=== PATIENT | male | born 1940 | race Caucasian/White ===

== ENCOUNTER 2019-02-28 08:21 | Inpatient (IN) | payer OTHER ==
--- OUTSIDE RECORDS SUMMARY | 2019-02-28 08:38 | XMS REPORT | Clinical Summary ---
:1940 Author Organization [facility] Address [address] [place] [address] Care Team Providers Name Role Phone Asked, No Pcp Primary Care Provider Unavailable Allergies Active Allergy Reactions Severity Noted Date Comments Meperidine Itching 01/27/2018 Medications Medication Sig Dispensed Refills Start End Date Status Date metFORMIN Take 1,000 mg 0 Active (GLUCOPHAGE) 1,000 by mouth 2 mg tablet (two) times a day with meals. atorvastatin Take 80 mg by 0 Active (LIPITOR) 80 MG mouth nightly. tablet gemfibrozil Take 600 mg by 0 Active (LOPID) 600 MG mouth 2 (two) tablet times a day. ezetimibe (ZETIA) Take 10 mg by 0 Active 10 mg tablet mouth daily. omeprazole Take 20 mg by 0 Active (PriLOSEC) 20 MG mouth daily. capsule lisinopril Take 5 mg by 0 Active (PRINIVIL,ZESTRIL) mouth daily. 5 mg tablet apixaban (ELIQUIS) Take 2.5 mg by 0 Active 5 mg tablet mouth 2 (two) times a day. furosemide (LASIX) Take 20 mg by 0 Active 20 mg tablet mouth daily. metoprolol Take 50 mg by 0 Active tartrate mouth 2 (two) (LOPRESSOR) 50 mg times a day. tablet amIODarone Take 400 mg by 0 Active (PACERONE) 200 MG mouth daily. tablet ondansetron Take 4 mg by 0 Active (ZOFRAN) 4 MG mouth every 6 tablet (six) hours as needed for nausea or vomiting. potassium 99 mg Take 1 tablet 0 Active tablet by mouth daily. folic Take 1 tablet 0 Active acid/multivit-min/ by mouth daily. lutein (CENTRUM SILVER ORAL) lidocaine-prilocai Apply 1 0 Active ne (EMLA) 2.5-2.5 application % cream topically. Apply to chemo port as directed UNABLE TO FIND Take 5 mL by 0 Active mouth every 6 (six) hours as needed. VISCOUS Swish, gargle and spit digOXIN (LANOXIN) Take 125 mcg by 0 07/01/19 Discontinued 125 mcg tablet mouth daily. 19 (Med List Cleanup) metoprolol Take 1 tablet 60 tablet 0 03/04/20 tartrate (25 mg total) 8 18 (LOPRESSOR) 25 mg by mouth 2 tablet (two) times a day for 30 days. apixaban (ELIQUIS) Take 1 tablet 60 tablet 0 03/04/20 5 mg tablet (5 mg total) by 8 18 mouth 2 (two) times a day for 30 days. pantoprazole Take 20 mg by 0 07/01/19 Discontinued (PROTONIX) 20 MG mouth daily. 19 (Med List EC tablet Cleanup) LORAZepam (ATIVAN) Take 0.5 mg by 0 07/01/19 Discontinued 0.5 MG tablet mouth nightly 19 (Med List as needed for Cleanup) anxiety (NAUSEA). eletriptan Take 20 mg by 0 07/01/19 Discontinued (RELPAX) 20 MG mouth once as 19 (Med List tablet needed for Cleanup) migraine. May repeat in 2 hours if unresolved. Do not exceed 80 mg in 24 hours. fluconazole Take 1 tablet 5 tablet 0 07/12/19 (DIFLUCAN) 200 MG (200 mg total) 9 19 tablet by mouth daily for 5 days. nystatin Take 5 mL by 70 mL 0 07/13/19 (MYCOSTATIN) mouth 2 (two) 9 19 100,000 unit/mL times a day for suspension 7 days. metroNIDAZOLE Take 1 tablet 39 tablet 0 07/19/19 (FLAGYL) 500 MG (500 mg total) 9 19 tablet by mouth 3 (three) times a day for 13 days. gabapentin Take 1 capsule 20 capsule 0 07/16/19 (NEURONTIN) 100 mg (100 mg total) 9 19 capsule by mouth 2 (two) times a day for 10 days. Active Problems Problem Noted Date Neutropenic fever 07/01/2018 Metastatic non-small cell lung cancer 05/23/2018 Atrial fibrillation with RVR 01/30/2018 Status post chemotherapy 01/27/2018 Encounters Date Type Specialty Care Team Description 07/01/2018 - Hospital Encounter General Internal [place] Neutropenic fever (HCC) (Primary Dx); 07/06/2018 Medicine MD Favio Pneumonia of right lung due to infectious organism, unspecified part of lung; Marvin Lazo Sepsis, due to unspecified organism (HCC); MD Liane Status post chemotherapy 06/23/2018 Infusion Oncology Marcia, Metastatic non-small cell lung cancer (HCC) (Primary Dx); MD Mary Status post chemotherapy 06/23/2018 Transcribe Orders Oncology Eli Bernabe 06/17/2018 Transcribe Orders Oncology Eli Bernabe 06/17/2018 Orders Only Hematology and [place], Malignant neoplasm of lower lobe of lung, unspecified laterality (HCC) (Primary Dx); Oncology MD Mary Metastatic non-small cell lung cancer (HCC) 05/31/2018 Infusion Oncology Marcia, Metastatic non-small MD Mary cell lung cancer (HCC) (Primary Dx) 05/31/2018 Transcribe Orders Oncology Eli Bernabe 05/26/2018 Transcribe Orders Oncology Srinivasa, Metastatic non-small Eli cell lung cancer (HCC) 05/20/2018 Transcribe Orders Oncology Eli Bernabe after 02/27/2018 Social History Tobacco Use Types Packs/Day Years Used Date Current Every Day Smoker Cigarettes 1.5 50 Tobacco Cessation: Ready to Quit: No; Counseling Given: No Comments: Declined Alcohol Use Drinks/Week oz/Week Comments No Sex Assigned at Date Recorded Not on file Job Start Date Occupation Industry Not on file Not on file Not on file Travel History Travel Start Travel End No recent travel history available. Last Filed Vital Signs Vital Sign Reading Time Taken Comments Blood Pressure 102/58 07/06/2018 7:35 AM CONVERTING OPERATOR Pulse 85 07/06/2018 7:35 AM CONVERTING OPERATOR Temperature 36.2 C (97.1 F) 07/06/2018 7:35 AM CONVERTING OPERATOR Respiratory Rate 17 07/06/2018 7:35 AM CONVERTING OPERATOR Oxygen Saturation 95% 07/06/2018 7:35 AM CONVERTING OPERATOR Inhaled Oxygen Concentration - - Weight 78.1 kg (172 lb 4 oz) 07/06/2018 6:45 AM CONVERTING OPERATOR Height 188 cm (6' 2") 07/01/2018 11:53 AM CONVERTING OPERATOR Body Mass Index 22.12 07/01/2018 11:53 AM CONVERTING OPERATOR Plan of Treatment Health Maintenance Due Date Last Done Comments COLONOSCOPY SCREENING 1992 SHINGLES VACCINES (#1) 1992 65+ PNEUMOCOCCAL VACCINE (1 of 2 - PCV13) 11/21/2007 INFLUENZA VACCINE 01/19/2019 Procedures Procedure Name Priority Date/Time Associated Diagnosis Comments MANUAL DIFFERENTIAL Routine 07/06/2018 5:53 Results for this AM CONVERTING OPERATOR procedure are in the results section. ESTIMATED GFR Routine 07/06/2018 5:53 Results for this AM CONVERTING OPERATOR procedure are in the results section. COMPREHENSIVE Routine 07/06/2018 5:53 Results for this METABOLIC PANEL AM CONVERTING OPERATOR procedure are in the results section. CBC WITH PLATELET AND Routine 07/06/2018 5:53 Results for this DIFFERENTIAL AM CONVERTING OPERATOR procedure are in the results section. BLOOD CULTURE, AEROBIC Routine 07/05/2018 3:30 Results for this & ANAEROBIC PM CONVERTING OPERATOR procedure are in the results section. BLOOD CULTURE, AEROBIC Routine 07/05/2018 3:30 Results for this & ANAEROBIC PM CONVERTING OPERATOR procedure are in the results section. PREPARE PLATELET Routine 07/05/2018 3:15 Results for this PHERESIS PM CONVERTING OPERATOR procedure are in the results section. TRANSFUSE PLATELET Routine 07/05/2018 2:39 PHERESIS PM CONVERTING OPERATOR MANUAL DIFFERENTIAL STAT 07/05/2018 9:40 Results for this AM CONVERTING OPERATOR procedure are in the results section. ESTIMATED GFR STAT 07/05/2018 9:40 Results for this AM CONVERTING OPERATOR procedure are in the results section. COMPREHENSIVE STAT 07/05/2018 9:40 Results for this METABOLIC PANEL AM CONVERTING OPERATOR procedure are in the results section. CBC WITH PLATELET AND STAT 07/05/2018 9:40 Results for this DIFFERENTIAL AM CONVERTING OPERATOR procedure are in the results section. MANUAL DIFFERENTIAL Routine 07/04/2018 5:45 Results for this AM CONVERTING OPERATOR procedure are in the results section. ESTIMATED GFR Routine 07/04/2018 5:45 Results for this AM CONVERTING OPERATOR procedure are in the results section. BASIC METABOLIC PANEL Routine 07/04/2018 5:45 Results for this AM CONVERTING OPERATOR procedure are in the results section. CBC WITH PLATELET AND Routine 07/04/2018 5:45 Results for this DIFFERENTIAL AM CONVERTING OPERATOR procedure are in the results section. XR CHEST 1 VW PORTABLE Routine 07/03/2018 2:18 Results for this PM CONVERTING OPERATOR procedure are in the results section. MANUAL DIFFERENTIAL Routine 07/03/2018 6:19 Results for this AM CONVERTING OPERATOR procedure are in the results section. ESTIMATED GFR Routine 07/03/2018 6:19 Results for this AM CONVERTING OPERATOR procedure are in the results section. BASIC METABOLIC PANEL Routine 07/03/2018 6:19 Results for this AM CONVERTING OPERATOR procedure are in the results section. CBC WITH PLATELET AND Routine 07/03/2018 6:19 Results for this DIFFERENTIAL AM CONVERTING OPERATOR procedure are in the results section. URINALYSIS SCREEN AND Routine 07/02/2018 6:55 Results for this MICROSCOPY, WITH AM CONVERTING OPERATOR procedure are in REFLEX TO CULTURE the results section. GRAM STAIN Routine 07/02/2018 6:55 Results for this AM CONVERTING OPERATOR procedure are in the results section. URINE CULTURE Routine 07/02/2018 6:55 Results for this AM CONVERTING OPERATOR procedure are in the results section. MANUAL DIFFERENTIAL Routine 07/02/2018 6:05 Results for this AM CONVERTING OPERATOR procedure are in the results section. ESTIMATED GFR Routine 07/02/2018 6:05 Results for this AM CONVERTING OPERATOR procedure are in the results section. BASIC METABOLIC PANEL Routine 07/02/2018 6:05 Results for this AM CONVERTING OPERATOR procedure are in the results section. CBC WITH PLATELET AND Routine 07/02/2018 6:05 Results for this DIFFERENTIAL AM CONVERTING OPERATOR procedure are in the results section. CONSULT TO SEPSIS Routine 07/02/2018 5:31 Neutropenic fever Results for this RESPONSE TEAM AM CONVERTING OPERATOR (HCC) procedure are in Status post the results chemotherapy section. TRANSFUSE RED BLOOD Routine 07/02/2018 3:13 CELLS AM CONVERTING OPERATOR TRANSFUSE PLATELET Routine 07/01/2018 11:19 PHERESIS PM CONVERTING OPERATOR LACTIC ACID LEVEL, Timed 07/01/2018 7:45 Results for this SEPSIS - NOW AND PM CONVERTING OPERATOR procedure are in REPEAT 2X EVERY 3 the results HOURS section. LACTIC ACID LEVEL, Timed 07/01/2018 5:53 Results for this SEPSIS - NOW AND PM CONVERTING OPERATOR procedure are in REPEAT 2X EVERY 3 the results HOURS section. POC GLUCOSE Routine 07/01/2018 4:01 Results for this PM CONVERTING OPERATOR procedure are in the results section. PREPARE PLATELET Routine 07/01/2018 3:45 Results for this PHERESIS PM CONVERTING OPERATOR procedure are in the results section. PREPARE RBC Routine 07/01/2018 3:45 Results for this PM CONVERTING OPERATOR procedure are in the results section. TYPE AND SCREEN Routine 07/01/2018 3:45 Results for this PM CONVERTING OPERATOR procedure are in the results section. ECG 12-LEAD STAT 07/01/2018 2:11 Results for this PM CONVERTING OPERATOR procedure are in the results section. RESPIRATORY PATHOGEN Routine 07/01/2018 2:05 Results for this PANEL PM CONVERTING OPERATOR procedure are in the results section. INFLUENZA ANTIGEN Routine 07/01/2018 2:05 Results for this TEST, REFLEX NEGATIVE PM CONVERTING OPERATOR procedure are in TO RPP the results section. BLOOD CULTURE, AEROBIC Routine 07/01/2018 1:30 Results for this & ANAEROBIC PM CONVERTING OPERATOR procedure are in the results section. SMEAR REVIEW STAT 07/01/2018 1:19 Results for this PM CONVERTING OPERATOR procedure are in the results section. SMEAR REVIEW STAT 07/01/2018 1:19 Results for this PM CONVERTING OPERATOR procedure are in the results section. ESTIMATED GFR STAT 07/01/2018 1:19 Results for this PM CONVERTING OPERATOR procedure are in the results section. B NATRIURETIC PEPTIDE STAT 07/01/2018 1:19 Results for this PM CONVERTING OPERATOR procedure are in the results section. PROTHROMBIN TIME WITH STAT 07/01/2018 1:19 Results for this INR PM CONVERTING OPERATOR procedure are in the results section. PHOSPHORUS LEVEL STAT 07/01/2018 1:19 Results for this PM CONVERTING OPERATOR procedure are in the results section. PARTIAL THROMBOPLASTIN STAT 07/01/2018 1:19 Results for this TIME (PTT) PM CONVERTING OPERATOR procedure are in the results section. MAGNESIUM LEVEL STAT 07/01/2018 1:19 Results for this PM CONVERTING OPERATOR procedure are in the results section. HEPATIC FUNCTION PANEL STAT 07/01/2018 1:19 Results for this PM CONVERTING OPERATOR procedure are in the results section. HC COMPLETE BLD COUNT STAT 07/01/2018 1:19 Results for this W/AUTO DIFF PM CONVERTING OPERATOR procedure are in the results section. BASIC METABOLIC PANEL STAT 07/01/2018 1:19 Results for this PM CONVERTING OPERATOR procedure are in the results section. LACTIC ACID LEVEL, STAT 07/01/2018 1:19 Results for this SEPSIS - NOW AND PM CONVERTING OPERATOR procedure are in REPEAT 2X EVERY 3 the results HOURS section. BLOOD CULTURE, AEROBIC Routine 07/01/2018 1:19 Results for this & ANAEROBIC PM CONVERTING OPERATOR procedure are in the results section. XR CHEST 1 VW PORTABLE STAT 07/01/2018 1:05 Results for this PM CONVERTING OPERATOR procedure are in the results section. ECG ED PRELIMINARY Routine 07/01/2018 12:15 Results for this INTERPRETATION PM CONVERTING OPERATOR procedure are in the results section. UT CRITICAL CARE, E/M Routine 07/01/2018 12:15 Results for this 30-74 MINUTES PM CONVERTING OPERATOR procedure are in the results section. COMPREHENSIVE STAT 06/23/2018 9:10 Results for this METABOLIC PANEL AM CONVERTING OPERATOR procedure are in the results section. ESTIMATED GFR STAT 06/23/2018 9:10 Results for this AM CONVERTING OPERATOR procedure are in the results section. MAGNESIUM LEVEL STAT 06/23/2018 9:10 Metastatic non-small Results for this AM CONVERTING OPERATOR cell lung cancer procedure are in (HCC) the results section. after 02/27/2018 Results Estimated GFR (07/06/2018 5:53 AM CONVERTING OPERATOR)Only the most recent of7 resultswithin the time period is included. Estimated GFR 37 (A) mL/min/1.73 [facility] Comment: m2 [place] CatergoryUnitsInterpretation HOSPITAL G1 >=90 Normal or high G2 60-89Mildly decreased [id number] to moderately decreased [id number] to severely decreased G4 15-29Severely decreased G5 <15Kidney failure The eGFR was calculated using the Chronic Kidney Disease Epidemiology Collaboration (CKD-EPI) equation. Interpretation is based on recommendations of the National Kidney Foundation-Kidney Disease Outcomes Quality Initiative (NKF-KDOQI) published in 2014. Specimen Plasma specimen Performing Organization Address City/State/Zipcode Phone Number [facility] DEPARTMENT OF PATHOLOGY [address] [place] [address] AND GENOMIC MEDICINE [facility] [address] [place] [address] HOSPITAL Manual differential (07/06/2018 5:53 AM CONVERTING OPERATOR)Only the most recent of5 resultswithin the time period is included. Manual differential PERFORMED [facility] Neutrophils 92.0 (H) 39.0 - 69.0 [facility] Lymphocytes 1.0 (L) 25.0 - 45.0 [facility] Monocytes 6.0 0.0 - 10.0 % [facility] Eosinophils 0.0 0.0 - 5.0 % [facility] Basophils 0.0 0.0 - 1.0 % [facility] Metamyelocytes 1 % [facility] Nucleated RBC 1 /100 WBC [place] Comment: [facility] results have been factored into the WBC count. [facility] No further calculation is needed. Platelet slide review Mkd decreased (A) [facility] Anisocytosis Moderate [facility] Tear drop cells Occasional [facility] Ovalocytes Moderate [facility] [place] cells Moderate (A) [facility] Specimen Performing Organization Address City/State/Zipcode Phone Number [facility] DEPARTMENT OF PATHOLOGY [address] [place] [address] AND GENOMIC MEDICINE [facility] [address] CBC with platelet and differential (07/06/2018 5:53 AM CONVERTING OPERATOR)Only the most recent of6 resultswithin the time period is included. WBC 22.1 (H) 4.5 - 11.0 [facility] k/uL [facility] RBC 2.99 (L) 4.40 - 6.00 [facility] m/uL [facility] HGB 9.4 (L) 14.0 - 18.0 [facility] g/dL [facility] HCT 28.4 (L) 41.0 - 51.0 % [facility] MCV 95.0 82.0 - 100.0 [facility] MCH 31.4 27.0 - 34.0 pg [facility] MCHC 33.1 31.0 - 37.0 [facility] g/dL [facility] RDW - SD 77.8 (H) 37.0 - 55.0 fL [facility] MPV 12.4 (H) 6.9 - 11.0 fL [facility] Platelet count 44 (LL) 150 - 400 K/uL [facility] Comment: [place] Final results called to and read back by SIMONE CAPONE @[id number] HOSPITAL 07:57 KO Nucleated RBC 0.60 /100 WBC [facility] Neutrophils 92.0 (H) 39.0 - 69.0 % [facility] Lymphocytes 1.0 (L) 25.0 - 45.0 % [facility] Monocytes 6.0 0.0 - 10.0 % [facility] Eosinophils 0.0 0.0 - 5.0 % [facility] Basophils 0.0 0.0 - 1.0 % [facility] Specimen Blood Performing Organization Address City/[facility]/Zipcode Phone Number [facility] DEPARTMENT OF PATHOLOGY [address] [place] [address] Comprehensive metabolic panel (07/06/2018 5:53 AM CONVERTING OPERATOR)Only the most recent of3 resultswithin the time period is included. Sodium 143 135 - 148 mEq/L [facility] Potassium 3.5 3.5 - 5.0 mEq/L [facility] Chloride 114 (H) 98 - 112 mEq/L [facility] CO2 16 (L) 24 - 31 mEq/L [facility] Anion gap 13@ANIO 7 - 15 mEq/L [facility] BUN 72 (H) 8 - 23 mg/dL [facility] Creatinine 1.74 (H) 0.70 - 1.20 [facility] mg/dL [facility] Glucose 121 (H) 65 - 99 mg/dL [facility] Calcium 8.8 8.8 - 10.2 [facility] mg/dL [facility] Protein 5.9 (L) 6.3 - 8.3 g/dL [facility] Albumin 2.3 (L) 3.5 - 5.0 g/dL [facility] A/G ratio 0.6 (L) 0.7 - 3.8 [facility] Alkaline phosphatase 162 (H) 40 - 129 U/L [facility] AST 43 10 - 50 U/L [facility] ALT 52 (H) 5 - 50 U/L [facility] Total bilirubin 0.3 0.2 - 1.2 mg/dL [facility] Specimen Plasma specimen Performing Organization Address City/[facility]/Zipcode Phone Number [facility] DEPARTMENT OF PATHOLOGY [address] [place] [address] Blood culture, aerobic & anaerobic (07/05/2018 3:30 PM CONVERTING OPERATOR)Only the most recent of4 resultswithin the time period is included. Pathologist [facility] Blood culture No growth after 5 days of incubation. [facility] isolate Comment: HOSPITAL Specimen Information Specimen Source: Blood Specimen Site: Antecubital, left Specimen Blood - Antecubital, left Performing Organization Address City/[facility]/Zipcode Phone Number [facility] DEPARTMENT OF PATHOLOGY AND [id number] [place] [address] Prepare platelet pheresis, 1 Units (07/05/2018 3:15 PM CONVERTING OPERATOR)Only the most recent of2 resultswithin the time period is included. [facility] Product name Platelets, Aph#1 PAS [facility] Unit number [id number] [facility] Product code [id number] [facility] Dispense status Transfused [facility] Blood expiration [id number] [facility] Blood type code 6200 [facility] Blood type A POSITIVE [facility] Specimen Performing Organization Address City/[facility]/Zipcode Phone Number [facility] DEPARTMENT OF PATHOLOGY [address] [place] [address] AND [facility] [address] [place] [address] HOSPITAL Transfuse platelets (07/05/2018 2:39 PM CONVERTING OPERATOR)Only the most recent of2 resultswithin the time period is included.Basic metabolic panel (07/04/2018 5: 45 AM CONVERTING OPERATOR)Only the most recent of4 resultswithin the time period is included. [facility] Sodium 138 135 - 148 mEq/L [facility] Potassium 4.0 3.5 - 5.0 mEq/L [facility] Chloride 106 98 - 112 mEq/L [facility] CO2 17 (L) 24 - 31 mEq/L [facility] Anion gap 15@ANIO 7 - 15 mEq/L [facility] BUN 76 (H) 8 - 23 mg/dL [facility] Creatinine 2.30 (H) 0.70 - 1.20 mg/dL [facility] Glucose 164 (H) 65 - 99 mg/dL [facility] Calcium 8.8 8.8 - 10.2 mg/dL [facility] Specimen Plasma specimen Performing Organization Address City/State/Zipcode Phone Number [facility] DEPARTMENT OF PATHOLOGY [address] [place] [address] AND GENOMIC MEDICINE [facility] [address] [place] [address] HOSPITAL XR Chest 1 Vw Portable (07/03/2018 2:18 PM CONVERTING OPERATOR)Only the most recent of2 resultswithin the time period is included. Specimen Narrative Performed At EXAMINATION: XR CHEST 1 VW PORTABLE [facility] INDICATION: evaluate for congestion COMPARISON: Most recent prior IMPRESSION: Stable appearance of the heart and mediastinum. Support lines and tubes are in similar in unchanged position. Pulmonary vascular congestion and bilateral perihilar/lower lobe infiltrates or edema have slightly increased since previous examination. Bibasilar volume loss is present. Moderate gaseous distention of the stomach. The visible pneumothorax. [facility]-[id number] Procedure Note Interface, Radiology Results Incoming - 07/03/2018 4:34 PM CONVERTING OPERATOR EXAMINATION: XR CHEST 1 VW PORTABLE INDICATION: evaluate for congestion COMPARISON: Most recent prior IMPRESSION: Stable appearance of the heart and mediastinum. Support lines and tubes are in similar in unchanged position. Pulmonary vascular congestion and bilateral perihilar/lower lobe infiltrates or edema have slightly increased since previous examination. Bibasilar volume loss is present. Moderate gaseous distention of the stomach. The visible pneumothorax. [facility]-[id number] Performing Organization Address City/[facility]/Zipcode Phone Number [facility] [address] [place] [address] Urinalysis screen and microscopy, with reflex to culture (07/02/2018 6:55 AM CONVERTING OPERATOR) Specimen site Clean catch [facility] Color, UA Alise [facility] Appearance, UA Cloudy [facility] Specific gravity, UA 1.027 1.001 - 1.030 [facility] pH, UA 5.0 5.0 - 9.0 [facility] Protein, UA 2+ (A) Negative [facility] Glucose, UA 1+ (A) Negative [facility] Ketones, UA Negative Negative [facility] Bilirubin, UA Negative Negative [facility] Blood, UA Moderate (A) Negative [facility] Nitrite, UA Negative Negative [facility] Urobilinogen, UA <2.0 <2.0 E.U./dL [facility] Leukocyte esterase, Negative Negative [facility] Epithelial cells, UA 1 /HPF [facility] Round epithelial <1 0 - 5 /HPF [facility] cells, [facility] WBC, UA 2 (H) 0 - 1 /HPF [facility] RBC, UA 1 0 - 5 /HPF [facility] Bacteria, UA Moderate (A) None seen [facility] Yeast, UA None seen [facility] Yeast with None seen [facility] pseudohyphae, [facility] Granular casts, UA 6 (H) -1 - 0 /LPF [facility] Hyaline casts, UA 0-2 /LPF [facility] Specimen Urine Performing Organization Address City/[facility]ode Phone Number [facility] DEPARTMENT OF PATHOLOGY [address] [place] [address] AND [facility] [phone] [place] [place] [address] HOSPITAL Gram stain (07/02/2018 6:55 AM CONVERTING OPERATOR) Gram stain result No WBC's or organisms seen. [facility] Comment: HOSPITAL Specimen Information Specimen Source: Urine Specimen Site: Clean catch Specimen Urine Performing Organization Address City/[facility]/Zipcode Phone Number [facility] DEPARTMENT OF PATHOLOGY AND [address] [place] [phone] Urine culture (07/02/2018 6:55 AM CONVERTING OPERATOR) Urine culture growth after 24 hours 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 Who was admitted with pancytopenia and neutropenia fever and mucositis; blood culture showed G(+)rods, on vancomycin, lactic acid WNL, WBC of 0.3, Neupogen initiated. Will check stool for C diff, continue abx, F/U cultures, Lactic acid level, wbc, further interventions per Oncology service recommendations. Sepsis Clinical Assessment Performed by: Eze Grullon NP-C Authorized by: Eze Grullon NP-C Sepsis Clinical Assessment General Assessment Information Current sepsis score:4 On comfort care?: No If score does not worsen, snooze alerts until:07/02/2018 08:00 CONVERTING OPERATOR SIRS Criteria WBC < 4 K/mcL due to acute condition Organ Dysfunction Lactate > 2.0 mmol/L due to acute condition Platelet count < 100,000/mcL due to acute condition Sepsis Assessment Clinical suspicion of infection? Yes Time of suspicion of infection:07/01/2018 5:32 AM Clinical suspicion of sepsis?: Yes Sepsis staging:Sepsis Sepsis protocol started?Yes Where did the protocol start?:Known Sepsis Suspected Type/Source of Infection Suspected Type of Infection: Bacterial Suspected Source of Infection: Bloodstream infection Other Acute Diagnoses Other Acute Diagnosis: Cancer Focus Exam Sepsis focus exam performed at 07/02/2018 3:00 AM Sepsis Related Vitals Heart rate: 76 Temperature: 97.2 F Respiratory rate: 18 Blood pressure: 93/56 Altered mental status: WBC (k/uL) Date Value 07/01/2018 0.3 (LL)02/02/2018 19.4 (H) Weight-Based Fluid Bolus Calculation The recommended weight-based bolus volume: 2,178 mL (dosing weight) Please refer to the MAR for actual med/fluid administrations. Transfuse RBC (07/02/2018 3:13 AM CONVERTING OPERATOR)Lactic acid level, SEPSIS - Now and repeat 2x every 3 hours (07/01/2018 7:45 PM CONVERTING OPERATOR)Only the most recent of3 resultswithin the time period is included. Lactic acid 2.1 0.5 - 2.2 mmol/L [facility] Specimen Plasma specimen Performing Organization Address City/[facility]/Zipcode Phone Number [facility] DEPARTMENT OF PATHOLOGY [address] [place] [address] POC glucose (07/01/2018 4:01 PM CONVERTING OPERATOR) POC glucose 162 (H) 65 - 99 mg/dL [facility] Comment: [facility] RN Notified Meter ID: [id number] Barrel Scraper: Tamra Drake Specimen Performing Organization Address City/[facility]/Zipcode Phone Number [facility] DEPARTMENT OF PATHOLOGY [address] [place] [address] [place] [address] HOSPITAL Prepare RBC, 1 Units (07/01/2018 3:45 PM CONVERTING OPERATOR) Product name Apheresis Red Cell [facility] AS3 #2 [facility] Unit number [id number] [facility] Product code [id number] [facility] Dispense status Transfused [facility] Blood expiration [id number] [facility] Blood type code 5100 [facility] Blood type O POSITIVE [facility] Specimen Performing Organization Address [facility]/Zipcode Phone Number [facility] DEPARTMENT OF PATHOLOGY [address] [place] [address] [place] [address] HOSPITAL Type and screen (07/01/2018 3:45 PM CONVERTING OPERATOR) ABO grouping OComment: 07/01/18 [facility] Blood is [place] available. Called HOSPITAL Darryl Culpkarthik @ 18:21 Nani Wild Rh type POS [facility] Antibody screen NEG [facility] (gel) [facility] Specimen Blood Performing Organization Address City/[facility]/Zipcode Phone Number [facility] DEPARTMENT OF PATHOLOGY [address] [place] [address] [place] [address] [facility] ECG 12 lead (07/01/2018 2:11 PM CONVERTING OPERATOR) Ventricular rate 83 [facility] Atrial rate 83 [facility] UT interval 142 [facility] QRSD interval 128 [facility] QT interval 364 [facility] QTC interval 427 [facility] P axis 1 44 [facility] QRS axis 1 -42 [facility] T wave axis 118 [facility] EKG impression Normal sinus rhythm-Left axis deviation-Nonspecific intraventricular block-T wave abnormality, consider anterolateral ischemia- Abnormal ECG-In automated comparison with ECG of 29-JAN-2018 23:22,-Sinus r [facility] hythm has replaced Atrial fibrillation-Vent. rate has decreased BY76 BPM-ST no longer depressed in Inferior leads-T wave inversion now evident in Anterior leads- Specimen Narrative Performed At Performing Organization Address City/[facility]ode Phone Number [facility] [address] [place] [address] Respiratory pathogen panel (07/01/2018 2:05 PM CONVERTING OPERATOR) Pathologist [facility] Respiratory Negative for all pathogens tested: [place] pathogen panel Negative for Adenovirus [facility] Negative for Coronavirus HKU1 [facility] Negative for Coronavirus NL63 Negative for Coronavirus 229E Negative for Coronavirus OC43 Negative for Human Metapneumovirus Negative for Rhinovirus/Enterovirus Negative for Influenza A Negative for Influenza A/H1 Negative for Influenza A/H3 Negative for Influenza A/H1-2009 Negative for Influenza B Negative for Parainfluenza Virus 1 Negative for Parainfluenza Virus 2 Negative for Parainfluenza Virus 3 Negative for Parainfluenza Virus 4 Negative for Respiratory Syncytial Virus Negative for Bordetella pertussis Negative for Chlamydophila pneumoniae Negative for Mycoplasma pneumoniae This real-time PCR assay detects the presence of nucleic acids (RNA or DNA) for the respiratory pathogens listed. A result of "Not-detected" does not exclude the possibility of the presence of one or more pathogens at concentrations less than the detectable limits of the assay. Comment: Specimen Information Specimen Source: Nasopharyngeal Specimen Site: Right Specimen Nasopharyngeal - Right Performing Organization Address City/[facility] Centercode Phone Number [facility] DEPARTMENT OF PATHOLOGY AND [address] [place] [address] [facility] [address] [place] [address] Influenza antigen test, reflex negative to RPP (07/01/2018 2:05 PM CONVERTING OPERATOR) Pathologist [facility] Influenza antigen Negative for Influenza A/B antigen. [facility] Comment: [place] Specimen Information [facility] Specimen Source: Nasopharyngeal Specimen Site: Right Specimen Nasopharyngeal - Right Performing Organization Address [facility] Centercode Phone Number [facility] DEPARTMENT OF PATHOLOGY [address] [place] [address] Smear review (07/01/2018 1:19 PM CONVERTING OPERATOR)Only the most recent of2 resultswithin the time period is included. Pathologist [facility] Platelet slide review Mkd decreased (A) [facility] Anisocytosis Moderate [facility] Spherocytes Occasional [facility] Ovalocytes Moderate [facility] Specimen Performing Organization Address [facility] Phone Number [facility] DEPARTMENT OF PATHOLOGY [address] [place] [address] Partial thromboplastin time, activated (07/01/2018 1:19 PM CONVERTING OPERATOR) [facility] PTT 43.0 (H) 23.0 - 36.0 LD [facility] Comment: [facility] PTT therapeutic range for unfractionated heparin is HOSPITAL 61.0-112.0 seconds which corresponds to Anti-Xa 0.3-0.7 U/ml. Specimen Blood Performing Organization Address City/[facility] Cent[facility]ode Phone Number [facility] DEPARTMENT OF PATHOLOGY [address] [place] [address] Prothrombin time with INR (07/01/2018 1:19 PM CONVERTING OPERATOR) [facility] Prothrombin time 15.7 (H) 11.5 - 14.5 [facility] INR 1.3 [facility] Comment: LISET DIXON [facility] International Normalized Ratio (INR) is a [facility] monitoring tool for patients who are stable on oral anticoagulant therapy. An INR of 2.0-3.0 is suggested for deep vein thrombosis/pulmonary embolism. Specimen Blood Performing Organization Address City/[facility]/Zipcode Phone Number [facility] DEPARTMENT OF PATHOLOGY [address] [place] [address] [place] [address] HOSPITAL Phosphorus level (07/01/2018 1:19 PM CONVERTING OPERATOR) Phosphorus 1.5 (L) 2.4 - 4.5 mg/dL [facility] Specimen Plasma specimen Performing Organization Address City/[facility]ode Phone Number [facility] DEPARTMENT OF PATHOLOGY [address] [place] [address] B natriuretic peptide (07/01/2018 1:19 PM CONVERTING OPERATOR) BNP 818 (H) 0 - 100 pg/mL [facility] Specimen Blood Performing Organization Address [facility] Centercode Phone Number [facility] DEPARTMENT OF PATHOLOGY [address] [place] [address] [place] [address] HOSPITAL Magnesium level (07/01/2018 1:19 PM CONVERTING OPERATOR)Only the most recent of2 resultswithin the time period is included. Magnesium 1.5 (L) 1.6 - 2.4 mg/dL [facility] Specimen Plasma specimen Performing Organization Address [facility] Cent[facility]ode Phone Number [facility] DEPARTMENT OF PATHOLOGY [address] [place] [address] Hepatic function panel (07/01/2018 1:19 PM CONVERTING OPERATOR) Albumin 2.9 (L) 3.5 - 5.0 g/dL [facility] Total bilirubin 0.4 0.2 - 1.2 mg/dL [facility] Bilirubin direct <0.2 0.0 - 0.3 mg/dL [facility] Alkaline phosphatase 87 40 - 129 U/L [facility] Protein 6.5 6.3 - 8.3 g/dL [facility] ALT 41 5 - 50 U/L [facility] AST 48 10 - 50 U/L [facility] Specimen Plasma specimen Performing Organization Address City/State/Zipcode Phone Number [facility] DEPARTMENT OF PATHOLOGY [address] [place] [address] AND GENOMIC MEDICINE [facility] [address] ECG ED Preliminary Interpretation - Not an Order (07/01/2018 12:15 PM CONVERTING OPERATOR) Narrative Performed At Juan Mcnulty MD 07/01/20187:58 PM ECG ED Preliminary Interpretation - Not an Order Performed by: Juan Mcnulty MD Authorized by: Juan Mcnulty MD ECG reviewed by ED Physician in the absence of a chief information security officer: yes Interpretation: Interpretation: abnormal Rate: ECG rate:83 ECG rate assessment: normal Rhythm: Rhythm: sinus rhythm Ectopy: Ectopy: none QRS: QRS axis:Left QRS intervals:Normal Conduction: Conduction: abnormal Abnormal conduction: non-specific intraventricular conduction delay ST segments: ST segments:Normal T waves: T waves: inverted Inverted:I, aVL, V2, V4 and V5 CRITICAL CARE (07/01/2018 12:15 PM CONVERTING OPERATOR) Narrative Performed At Juan Mcnulty MD :58 PM Critical Care Performed by: Juan Mcnulty MD Authorized by: Juan Mcnulty MD Critical care provider statement: Critical care time (minutes):32 Critical care time was exclusive of:Separately billable procedures and treating other patients and teaching time Critical care was necessary to treat or prevent imminent or life-threatening deterioration of the following conditions:Sepsis Critical care was time spent personally by me on the following activities:Ordering and performing treatments and interventions, development of treatment plan with patient or surrogate, ordering and review of laboratory studies, ordering and review of radiographic studies, discussions with consultants, pulse oximetry, evaluation of patient's response to treatment, re-evaluation of patient's condition, examination of patient, review of old charts, interpretation of cardiac output measurements and obtaining history from patient or surrogate Hugo 'yes' if you are taking over critical care for this patient from another provider.: no after 02/27/2018 Insurance Payer Benefit Plan / Subscriber ID Effective Dates Phone Address Type Group HU[employer]NA MEDICARE HU[employer]NA MEDICARE xxxxxxxxx 2018-Present PPO PPO/PFFS/ERS MCR Advance Directives For more information, please contact: [phone] Type Date Recorded Patient Ship'S Pilot Explanation Advance Directives, Living Will 01/27/2018 6:02 PM and Medical Power of Clock And Watch Hands Mounter Advance Directives, Living Will 07/08/2018 4:30 PM 07/05/2018 and Medical Power of Clock And Watch Hands Mounter
--- OUTSIDE RECORDS SUMMARY | 2019-02-28 08:38 | XMS REPORT | Clinical Summary ---
:[address] [facility] Address [address] [place] [address] Care Team Providers Name Role Phone Unavailable Primary Care Provider Unavailable Allergies Active Allergy Reactions Severity Noted Date Comments Meperidine Itching scalp Medications Medication Sig Dispensed Refills Start Date End Date Status lisinopril Take 20 mg by 0 Active (PRINIVIL,ZESTRIL) 20 mouth daily. MG tablet metFORMIN (GLUCOPHAGE) Take 1,000 mg by 0 Active 1000 MG tablet mouth 2 (two) times daily with breakfast and dinner. gemfibrozil (LOPID) Take 600 mg by 0 Active 600 MG tablet mouth 2 (two) times daily. atorvastatin (LIPITOR) Take 80 mg by 0 Active 80 MG tablet mouth daily. furosemide (LASIX) 20 Take 20 mg by 0 Active MG tablet mouth daily. ezetimibe (ZETIA) 10 Take 10 mg by 0 Active mg tablet mouth daily. metoprolol (TOPROL-XL) Take 25 mg by 0 Active 25 MG 24 hr tablet mouth 2 (two) times daily. digoxin (LANOXIN) Take 125 mcg by 0 Active 0.125 MG tablet mouth daily. omeprazole (PRILOSEC) Take 10 mg by 0 Active 10 MG capsule mouth daily. POTASSIUM CHLORIDE Take by mouth 0 Active ORAL daily. MULTIVITAMIN ORAL Take by mouth. 0 Active aspirin 325 MG EC Take 325 mg by 0 Active tablet mouth daily. fluticasone (FLONASE) 1 spray by Nasal 0 Active 50 mcg/actuation nasal route daily. spray Active Problems Not on file Social History Tobacco Use Types Packs/Day Years Used Date Current Every Day Smoker 1.5 50 Smokeless Tobacco: Never Used Alcohol Use Drinks/Week oz/Week Comments No Sex Assigned at Date Recorded Not on file Job Start Date Occupation Industry Not on file Not on file Not on file Travel History Travel Start Travel End No recent travel history available. Last Filed Vital Signs Not on file Plan of Treatment Not on file Implants Implanted Type Area Manager Learning Device Shelf Model / Identifier Expiration Serial / Date Lot Power Port Right: BARD ACCESS 08/19/2019 [id number] / Implanted: Qty: 1 on 01/13/2018 by Shane Bautista MD [employer] / [id number] Results Not on fileafter 02/27/2018 Insurance Payer Benefit Plan / Group Subscriber ID Type Phone Address [employer] - MEDICARE MGD HU[employer]NA MEDICARE ADV xxxxxxxxx Maps Contracted CARE
--- OUTSIDE RECORDS SUMMARY | 2019-02-28 08:39 | XMS REPORT ---
:1940 Author Organization [facility] Address [address] [place] [address] [address]. [address]man [address] [place] [address] Care Team Providers Name Role Phone ROSY WEINSTEIN Primary Care Provider Unavailable FRAN BRAMBILA Unavailable Unavailable ROSY WEINSTEIN Unavailable Unavailable Problems This patient has no known problems. Allergies, Adverse Reactions, Alerts This patient has no known allergies or adverse reactions. Medications This patient has no known medications. Encounters Start End Encounter Admission Attending Care Care Encounter Date/Time Date/Time Type Type Clinicians Facility Department ID 2017-07-27 2017-07-27 [id number] 18:54:00 18:54:00 ROSY 2016-10-12 2016-10-12 [facility] [id number] 23:03:00 23:03:00 ROSY Results Test Description Test Time Test Comments Text Results Atomic Results Result Comments ERIC, TUNNEL CATH 2018-01-13 12:51:00 Reason for FINAL REPORT PATIENT CENTRAL INS Exam:->C34.92 ID: [id number] W/PORT C Procedure: Chest port placement. History: Malignancy Operators: Michele Conscious Sedation: Versed 1.5 mg, fentanyl 75 mcg, (Administered after informed consent was obtained) Vital signs were monitored throughout the procedure by a nurse, and remained stable. Physician intra-service time was 30 minutes. Total fluoroscopy time: 8 seconds Estimated dose reported as ( Ka, r): 1 mGy Technique: Informed written consent was obtained. The right neck and chest were prepped. All elements maximal sterile barrier technique was utilized for this procedure, including utilization of sterile scrub solution for skin prep, a large sterile sheet to cover the areas of the patient that were not prepped, and hand hygiene, mask, head covering, and sterile gown for performing radiologist and scrub technologist. Under direct real-time ultrasound guidance the right internal jugular vein was accessed with a micropuncture needle. A 5 [place] sheath and dilator was placed. A 3 J-wire was then advanced and the access site was dilated. A 7 [place] peel-away introducer sheath was then placed. The distal end of the 5 [place] Citizen port catheter was then advanced through the peel-away and placed with tip under fluoroscopic control at the atriocaval junction. The proximal end of the catheter was then back tunneled on the anterior chest. A subcutaneous pocket was then made. The catheter was then attached to a single-lumen port which was placed into the pocket and anchored with 2 Monocryl sutures. The port flushed and aspirated easily following placement and was packed with 5cc of Heparin at 100U/cc (total dosage of 500U). The overlying skin was closed with interrupted subcuticular sutures. Steri-strips and dressing was applied. There are no immediate complications. The patient tolerated the procedure well and left the department in the same condition. Findings: 1. Inital ultrasound evaluation prior to port placement showed a patent and compressible right internal jugular vein. An ultrasound image was saved to PACS. 2. Spot radiograph following port placement revealed appropriate positioning with the tip projecting at the cavoatrial junction. No immediate pneumothorax identified. Impression: Successful placement of a single-lumen right-sided chest port using sonographic and fluoroscopic guidance and conscious sedation. The tip is satisfactorily positioned at the atriocaval junction. A "Power" port rated for power CT injections was placed. Signed: Jorge Bautista MDReport Verified Date/Time: 01/13/2018 12:51:56 Reading Location: [facility] Radiology Reading Room -GLUCOSE METER 2018-01-13 12:33:00 Test Item Value Reference Range Comments POC-GLUCOSE METER (BEAKER) (test 99 mg/dL 70-110 TESTED AT [facility] [address] [id number] [facility] [id number] CBC W/PLT COUNT & AUTO [id number] 11:28:00 Test Item Value Reference Range Comments WHITE BLOOD CELL COUNT (BEAKER) (test rlga=975) 7.1 K/ L 4.0-10.0 RED BLOOD CELL COUNT (BEAKER) (test wtay=418) 4.26 M/ L 4.20-5.80 HEMOGLOBIN (BEAKER) (test kaeh=140) 11.0 GM/DL 13.0-16.8 HEMATOCRIT (BEAKER) (test otds=323) 34.2 % 40.0-50.0 MEAN CORPUSCULAR VOLUME (BEAKER) (test wfgs=544) 80.3 fL 82.0-98.0 MEAN CORPUSCULAR HEMOGLOBIN (BEAKER) (test 25.8 pg 27.0-33.0 wejd=854) MEAN CORPUSCULAR HEMOGLOBIN CONC (BEAKER) (test 32.1 GM/DL 32.0-36.0 jbtz=176) RED CELL DISTRIBUTION WIDTH (BEAKER) (test 19.2 % 10.3-14.2 tzqn=914) PLATELET COUNT (BEAKER) (test urel=623) 362 K/CU MM 150-430 MEAN PLATELET VOLUME (BEAKER) (test mzzb=671) 6.7 fL 6.5-10.5 NUCLEATED RED BLOOD CELLS (BEAKER) (test 0 /100 WBC 0-0 usfv=452) NEUTROPHILS RELATIVE PERCENT (BEAKER) (test 67 % qrak=315) LYMPHOCYTES RELATIVE PERCENT (BEAKER) (test 24 % yyml=360) MONOCYTES RELATIVE PERCENT (BEAKER) (test 7 % glve=134) EOSINOPHILS RELATIVE PERCENT (BEAKER) (test 2 % fkbu=782) BASOPHILS RELATIVE PERCENT (BEAKER) (test 0 % fxih=861) NEUTROPHILS ABSOLUTE COUNT (BEAKER) (test 4.70 K/ L 1.80-8.00 zwvj=449) LYMPHOCYTES ABSOLUTE COUNT (BEAKER) (test 1.70 K/ L 1.48-4.50 bpuz=805) MONOCYTES ABSOLUTE COUNT (BEAKER) (test 0.50 K/ L 0.00-1.30 bvbc=250) EOSINOPHILS ABSOLUTE COUNT (BEAKER) (test 0.10 K/ L 0.00-0.50 fyeu=707) BASOPHILS ABSOLUTE COUNT (BEAKER) (test 0.00 K/ L 0.00-0.20 bnkk=615) (MANUAL DIFFERENTIAL)2018-01-13 11:28:00 Test Item Value Reference Range Comments TOTAL COUNTED (BEAKER) (test pgwz=6759) WBC MORPHOLOGY (BEAKER) (test yfgk=498) Normal PLT MORPHOLOGY (BEAKER) (test qysw=861) Normal HYPOCHROMIA (BEAKER) (test nqhv=673) 3+ many [id number] 11:06:00 Test Item Value Reference Range Comments PROTIME (BEAKER) (test bubk=230) 11.0 sec 9.3-12.0 INR (BEAKER) (test zdko=365) 1.0 <=5.9 PARTIAL THROMBOPLASTIN TIME (BEAKER) (test 28.4 sec 23.0-35.0 bbti=107) RECOMMENDED COUMADIN/WARFARIN INR THERAPY RANGESSTANDARD DOSE: 2.0 - 3.0 Includes: PROPHYLAXIS forvenous thrombosis, systemic embolization; TREATMENT for venous thrombosis and/or pulmonary embolus.HIGH RISK: Target INR is 2.5-3.5 for patients with mechanical heart valves.Final Information (Auto Output)Final Information (Auto Output)Final Information (Auto Output)Glycosylated [id number] 21:27:00 Test Item Value Reference Range Comments HBA1c (test code=HBA1C) 7.6 % 4.8-5.9 CBC with [id number] 20:35:00 Test Item Value Reference Range Comments WBC (test code=WBC) 7.7 K/cumm 4.4-10.5 RBC (test code=RBC) 4.40 M/cumm 4.10-5.70 Hemoglobin (test code=HGB) 11.5 gm/dL 13.4-17.4 Hematocrit (test code=HCT) 36.6 % 38.7-52.0 MCV (test code=MCV) 83.3 fL 80-100 MCH (test code=MCH) 26.2 pg 27.0-32.5 MCHC (test code=MCHC) 31.4 g/dL 32.0-37.5 RDW (test code=RDW) 16.3 % 11.5-14.5 Platelet Count (test code=PLTCT) 339 K/cumm 140-440 MPV (test code=MPV) 10.1 fL Diff Method (test code=DIFFM) Auto Neutrophil (test code=NEUT) 69.1 % 36-70 Lymphocyte (test code=LYMPH) 23.1 % 12-44 Monocyte (test code=MONO) 5.9 % 0-11 Eosinophil (test code=EOS) 1.6 % 0-7 Basophil (test code=BASO) 0.3 % 0-2 Neutro Abs (test code=ANEUT) 5.4 K/cumm 1.6-7.4 Lymph Abs (test code=ALYMPH) 1.8 K/cumm 0.5-4.6 [place] Abs (test code=AMONO) 0.5 K/cumm 0.0-1.2 Eos Abs (test code=AEOS) 0.12 K/cumm 0.00-0.74 Baso Abs (test code=ABASO) 0.0 K/cumm 0.00-0.21 Hypochromic (test code=HYPO) Slight Comprehensive Metabolic [id number] 20:08:00 Test Item Value Reference Range Comments Sodium (test code=NA) 139 mmol/L 135-145 Potassium (test code=K) 5.0 mmol/L 3.5-5.1 Chloride (test code=CL) 99 mmol/L 98-105 Carbon Dioxide (test 27 mmol/L 22-29 code=CO2) Glucose (test code=GLU) 98 mg/dL 70-115 Blood Urea Nitrogen 19 mg/dL 8-23 (test code=BUN) Creatinine (test 1.2 mg/dL 0.7-1.2 code=CREAT) Calcium (test code=CA) 9.4 mg/dL 8.3-10.5 Prot Total (test 6.6 g/dL 6.4-8.3 code=TP) Albumin (test code=ALB) 3.9 g/dL 3.5-5.2 A/G Ratio (test 1.4 Ratio code=AGRATIO) Globulin (test 2.7 2.9-3.1 code=GLOB) Bili Total (test 0.3 mg/dL 0.1-0.9 code=TBIL) Alk Phos (test 128 U/L 40-129 code=APHOS) AST (test code=AST) 16 U/L 1-40 ALT (test code=ALT) 10 U/L 1-41 BUN/Creatinine Ratio 15.8 (test code=BCRATIO) Anion Gap (test 13 mmol/L 7-16 code=AGAP) Estimated GFR (test >60 mL/min/1.73m2 eGFR (estimated Glomerular code=GFR) Filtration Rate) is an estimated value,calculated from the patient's serum creatinine using the MDRD equation.It is NOT the patient's actual GFR. The eGFR provides a more clinicallyuseful measure of kidney disease than serum creatinine alone.This calculation takes sex and race into account, if the informationis provided. If the race is not provided, and the patient isAfrican-Citizen Of [place], multiply by 1.212. If sex is not provided, and thepatient is female, multiply by 0.742. Results for patients <18 years ofage have not been validated by the MDRD study and should be interpretedwith caution.eGFR Result Interpretation:eGFR > or=60 is in the Normal RangeeGFR < 60 may mean kidney diseaseeGFR < 15 may mean kidney failureRanges recommended by the National Kidney Foundation,http://nkdep.nih .gov Lipid [id number] 20:08:00 Test Item Value Reference Range Comments Cholesterol (test 119 mg/dL 0-200 code=CHOL) Triglycerides (test 93 mg/dL 9-200 code=TRIG) HDL (test code=HDL) 53 mg/dL 40-60 Chol/HDL (test 2.2 Ratio 0.0-5.0 code=CHOLPHDL) LDL, Calculated (test 47 mg/dL 0-130 (NOTE)RISK OF HEART code=LDLC) DISEASEPublished by Citizen Of [place] Heart AssociationAnalyte Optimal Boderline Increased RiskCHOL <200 200-239 >240TRIG <150 150-199 >200HDL Male: >60 <40HDL Female: >60 <50LDL <100 130-159 >160LDL NEAR OPTIMAL IS 100-129 VLDL (test code=VLDL) 19 mg/dL 5-40 LDL/HDL (test code=LDLPHDL) 1 Glycosylated [id number] 00:29:00 Test Item Value Reference Range Comments HBA1c (test code=HBA1C) 6.6 % 4.8-5.9 CBC with [id number] 23:44:00 Test Item Value Reference Range Comments WBC (test code=WBC) 9.2 K/cumm 4.4-10.5 RBC (test code=RBC) 4.64 M/cumm 4.10-5.70 Hemoglobin (test code=HGB) 12.1 gm/dL 13.4-17.4 Hematocrit (test code=HCT) 38.3 % 38.7-52.0 MCV (test code=MCV) 82.6 fL 80-100 MCH (test code=MCH) 26.0 pg 27.0-32.5 MCHC (test code=MCHC) 31.5 g/dL 32.0-37.5 RDW (test code=RDW) 18.2 % 11.5-14.5 Platelet Count (test code=PLTCT) 300 K/cumm 140-440 MPV (test code=MPV) 9.2 fL Diff Method (test code=DIFFM) Auto Neutrophil (test code=NEUT) 76.1 % 36-70 Lymphocyte (test code=LYMPH) 16.5 % 12-44 Monocyte (test code=MONO) 5.8 % 0-11 Eosinophil (test code=EOS) 1.5 % 0-7 Basophil (test code=BASO) 0.2 % 0-2 Neutro Abs (test code=ANEUT) 7.0 K/cumm 1.6-7.4 Lymph Abs (test code=ALYMPH) 1.5 K/cumm 0.5-4.6 [place] Abs (test code=AMONO) 0.5 K/cumm 0.0-1.2 Eos Abs (test code=AEOS) 0.13 K/cumm 0.00-0.74 Baso Abs (test code=ABASO) 0.0 K/cumm 0.00-0.21 Anisocytosis (test code=ANISO) Slight Hypochromic (test code=HYPO) Slight Comprehensive Metabolic [id number] 23:36:00 Test Item Value Reference Range Comments Sodium (test code=NA) 138 mmol/L 135-145 Potassium (test code=K) 4.2 mmol/L 3.5-5.1 Chloride (test code=CL) 97 mmol/L 98-105 Carbon Dioxide (test 26 mmol/L 22-29 code=CO2) Glucose (test code=GLU) 115 mg/dL 70-115 Blood Urea Nitrogen 20 mg/dL 8-23 (test code=BUN) Creatinine (test 1.1 mg/dL 0.7-1.2 code=CREAT) Calcium (test code=CA) 9.6 mg/dL 8.3-10.5 Prot Total (test 6.6 g/dL 6.4-8.3 code=TP) Albumin (test code=ALB) 4.1 g/dL 3.5-5.2 A/G Ratio (test 1.6 Ratio code=AGRATIO) Globulin (test 2.5 2.9-3.1 code=GLOB) Bili Total (test 0.4 mg/dL 0.1-0.9 code=TBIL) Alk Phos (test 135 U/L 40-129 code=APHOS) AST (test code=AST) 16 U/L 1-40 ALT (test code=ALT) 10 U/L 1-41 BUN/Creatinine Ratio 18.2 (test code=BCRATIO) Anion Gap (test 15 mmol/L 7-16 code=AGAP) Estimated GFR (test >60 mL/min/1.73m2 eGFR (estimated Glomerular code=GFR) Filtration Rate) is an estimated value,calculated from the patient's serum creatinine using the MDRD equation.It is NOT the patient's actual GFR. The eGFR provides a more clinicallyuseful measure of kidney disease than serum creatinine alone.This calculation takes sex and race into account, if the informationis provided. If the race is not provided, and the patient isAfrican-Citizen Of [place], multiply by 1.212. If sex is not provided, and thepatient is female, multiply by 0.742. Results for patients <18 years ofage have not been validated by the MDRD study and should be interpretedwith caution.eGFR Result Interpretation:eGFR > or=60 is in the Normal RangeeGFR < 60 may mean kidney diseaseeGFR < 15 may mean kidney failureRanges recommended by the National Kidney Foundation,http://nkdep.nih .gov Lipid [id number] 23:36:00 Test Item Value Reference Range Comments Cholesterol (test 126 mg/dL 0-200 code=CHOL) Triglycerides (test 104 mg/dL 9-200 code=TRIG) HDL (test code=HDL) 51 mg/dL 40-60 Chol/HDL (test 2.5 Ratio 0.0-5.0 code=CHOLPHDL) LDL, Calculated (test 54 0-130 (NOTE)RISK OF HEART code=LDLC) DISEASEPublished by Citizen Of [place] Heart AssociationAnalyte Optimal Boderline Increased RiskCHOL <200 200-239 >240TRIG <150 150-199 >200HDL Male: >60 <40HDL Female: >60 <50LDL <100 130-159 >160LDL NEAR OPTIMAL IS 100-129 VLDL (test code=VLDL) 21 mg/dL 5-40 LDL/HDL (test code=LDLPHDL) 1
--- NOTE | 2019-02-28 09:31 | RAD REPORT ---
EXAM DESCRIPTION: RAD - Chest Single View - 02/28/2019 9:04 am CLINICAL HISTORY: Malignant pleural effusion COMPARISON: CT chest February 22 TECHNIQUE: AP portable chest image was obtained 0900 hours . FINDINGS: Lung volumes are low. Patient has a baseline mild prominence of the interstitial pattern. Heart and vasculature are normal. Moderate-size right pleural effusion is identified matching the CT study. No measurable left pleural effusion. Left-sided pacemaker and right-sided Port-A-Cath remain i n place. No acute bony abnormality seen. No acute aortic findings suspected. IMPRESSION: Moderate right pleural effusion matching the February 22 CT study.
[2019-02-28] MEDS ORDERED: LIDOCAINE 1% W/EPI 1:100,000 10 ML VIAL IJ ONE (11:00)
--- NOTE | 2019-02-28 11:33 | P.OP ---
Preoperative diagnosis: Right Malignant Pleural Effusion Postoperative diagnosis: Right Malignant Pleural Effusion Primary procedure: Placement of a RIGHT Pleur-X Thoracic drainage tube Anesthesia: GETA + Local Estimated blood loss: <2ccc Specimen: Clear straw fluid sent for cytology and cytospin Findings: straw colored fluid Complications: None Drain(s): Other (Pleur-X Catheter) Implants: pleur-x catheter Transferred to: Other (room) Condition: Good
[2019-02-28] MEDS ORDERED: TRAMADOL HCL 50 MG TAB PO ONE (12:57)
[2019-02-28 13:21] VITALS: O2SAT 100; BMI 21.7
[2019-02-28 14:21] VITALS: BP 113/69; TEMP 96.8
--- NOTE | 2019-02-28 16:11 | RAD REPORT ---
EXAM DESCRIPTION: Sancho Single View02/28/2019 3:58 pm CLINICAL HISTORY: Chest pain COMPARISON: February 28, 2019 FINDINGS: October right chest tube enters the right lateral lower hemithorax. It good then makes a david p inferior turn. The tip lies within the medial lower right hemithorax. The right pleural effusion has been mostly evacuated. A pneumothorax is not seen
--- NOTE | 2019-02-28 16:57 | CON ---
Date of Consultation: 02/28/2019 Brief History Of Present Illness: The patient is a 78-year-old man with a history of malig nant right pleural effusion secondary to stage IV lung cancer seen by Dr. Thompson earlier this week with increasing shortness of breath, and an enlarged right pleural effusion, who was admitted today for s hortness of breath and malignant right pleural effusion. I have been consulted to see the patient fo r placement of a PleurX indwelling thoracic catheter. Past Medical History: Significant for hypertension, atrial fibrillation, stage IV lung cancer. Past Surgical History: Includes coronary artery bypass graft/CABG surgery, triple-vessel pacemaker p lacement and port placement. Allergies: TO MEPERIDINE. Home Medications: Include Xarelto, this was held yesterday and it has been reviewed. Review of Systems: A 10-point review of systems he has increasing fatigue. Physical Examination: General: At the time of my examination, he is awake, alert, oriented. Psychiatric: He is appropriate conversive. HEENT: He is normocephalic. His sclerae are anicteric. His mucous membranes are moist. His oropha rynx is clear. Neck: Supple with no JVD. Chest: Expansion is clear. He has a right Port-A-Cath in place and a left chest pacemaker. Chest, otherwise is unremarkable. Extremities: He has bilateral lower extremity pitting edema. Laboratory Data: He has a chest x-ray performed, which confirms a ttemhchs-wq-nxkys right pleural ef fusion. Assessment And Plan: This is a 78-year-old male who comes in with a malignant right pleural effusion . 1.Continue medical management per Dr. White. 2.Placement of a right thoracic PleurX chest indwelling chest tube. 3.I have explained risks, benefits, alternatives of the above stated plan, which include, but not li mited to bleeding, infection, damage to surrounding tissues, injury to lung, great vessels, blood sangeetha ts, strokes, heart attack, need for further operation and procedures. The patient agrees to proceed as indicated. Thank you for this interesting consult. MARIELOS/TRAVIS Voice ID: [id number] Report ID: [id number]
--- NOTE | 2019-02-28 18:35 | P.SSS ---
Patient History Date of Service: 02/28/19 History of Present Illness: The patient is a 78-year-old man with a history of malignant right pleural effusion secondary to stage IV lung cancer seen by Dr. Thompson earlier this week with increasing shortness of breath, and an enlarged right pleural effusion, who was admitted today for palcement for pleurax catheter for malignant right pleural effusion. Allergies meperidine [From Demerol] Adverse Reaction (Verified 02/28/19 08:46) Itching - Past Medical/Surgical History Has patient received pneumonia vaccine in the past: No Diabetic: No -: CT -: Cancer -: Pacemaker - Social History Smoking Status: Current every day smoker Alcohol use: No CD- Drugs: No Caffeine use: Yes Place of Residence: Home Review of Systems 10-point ROS is otherwise unremarkable Physical Examination - Vital Signs Temperature: 96.8 F Blood Pressure: 113/69 Pulse: 86 Respirations: 19 - Physical Exam General: Alert, In no apparent distress Respiratory: Normal air movement, Expiratory wheezes, Inspiratory wheezes Cardiovascular: Regular rate/rhythm, Normal S1 S2 Gastrointestinal: Normal bowel sounds, No tenderness Musculoskeletal: No tenderness Integumentary: No rashes Neurological: Normal gait, Normal speech, Normal strength at 5/5 x4 extr, Normal tone, Normal affect Lymphatics: No axilla or inguinal lymphadenopathy - Diagnosis (Problem(s)) (1) Pleural effusion Status: Acute Plan: Malignant pleural effusion most likely secondary to stage 4 lung cancer -Gen Surgery consulted for pleurax catheter -After the Catheter was placed pt had marked improvement -Repeat Xray in 4hrs showed marked improvment and thus pt was DC home. -Pt will f.u with Dr Crenshaw in the clinic and will have HH take care of the pleurax catheter - Disposition Disposition: ROUTINE DISCHARGE
--- NOTE | 2019-02-28 23:48 | OP ---
Date of Procedure: 02/28/2019 Surgeon: Pedro Crenshaw MD, Preoperative Diagnosis: Right malignant pleural effusion. Postoperative Diagnosis: Right malignant pleural effusion. Procedure Performed: Placement of a right PleurX thoracic drainage tube. Anesthesia: Local with 1% lidocaine only. No general anesthesia used. Specimen: Clear straw-colored fluid sent for cytology and cytospin. Findings: Straw-colored fluid. Complications: None. Drains: PleurX catheter. Inplants: PleurX catheter. Condition: Patient remained in the room in good condition. Procedure In Detail: After informed consent was obtained, patient was prepped and draped in the usua l sterile fashion. After adequate anesthesia was achieved with 1% lidocaine in the right thoracic sp jorgito at approximately the 5th and 6th intercostal space, after anesthetizing the area, I made a small incision in this area. Using a finder needle, I then placed the needle and sheath into the thoracic cavity on the first attempt. A wire was advanced. As the wire was placed, the sheath confirmed stra w-colored fluid. At this time, the introducer sheath was left in place and the wire was left in plac e. Using a Seldinger type technique, a counter incision was made 3 to 4 rib spaces away from the ins ertion site for a tunneling placed. The tract was anesthetized. The tunneling device then used to p ass the PleurX catheter up through the insertion site. I then sequentially dilated up the tract usin g a Seldinger over wire technique and placed the introducer sheath in. The PleurX catheter was then placed into the introducer sheath and secured into the chest. Straw-colored fluid was returned. I pablo fierro secured the catheter to the chest using a 2-0 nylon suture in interrupted fashion after cleansing this area once again and sterile dressing was placed over top. Patient tolerated the procedure well without evidence of complication, remained in room in good condition. All counts were correct at th e end of the case. MARIELOS/MODL Voice ID: [id number] Report ID: [id number]
== END 2019-02-28 17:57 | disposition home or self-care (01) | DRG 181 ==
LOC: 2ND 08:36
PROVIDERS: ADMIT Surgery; ATTEND Family Medicine
PROC: 0W9830Z Drainage of Chest Wall with Drainage Device, Percutaneous Approach (ICD-10-PCS; principal; 2019-02-28)
DX: C34.90 Malignant neoplasm of unspecified part of unspecified bronchus or lung (principal); J91.0 Malignant pleural effusion; I25.2 Old myocardial infarction; Z95.0 Presence of cardiac pacemaker; F17.210 Nicotine dependence, cigarettes, uncomplicated; I10 Essential (primary) hypertension
CPT/HCPCS: 36415; 71045; 80053; 85610; 88108; 88305